=== PATIENT | female | born 1940 | race Caucasian/White ===

== ENCOUNTER → 2020-07-17 | Outpatient (CLI) | payer MEDICARE, OTHER | LOC: ECHO 13:30 | PROVIDERS: Internal Medicine Nephrology | DX: I50.9 Heart failure, unspecified (principal); I51.7 Cardiomegaly; I34.8 Other nonrheumatic mitral valve disorders | CPT/HCPCS: ECHO; 36415; 80053; 82570; 84156; 93306 ==

== ENCOUNTER → 2022-03-06 | Outpatient (CLI) | payer MEDICARE, OTHER | LOC: US 15:09 | PROVIDERS: Internal Medicine Nephrology | DX: N18.32 Chronic kidney disease, stage 3b (principal); N28.1 Cyst of kidney, acquired | CPT/HCPCS: 36415; 80053; 82570; 84156 ==

== ENCOUNTER → 2022-03-20 | Outpatient (CLI) | payer MEDICARE, OTHER | LOC: US 08:08 | DX: I10 Essential (primary) hypertension (principal) | CPT/HCPCS: 93975 ==